=== PATIENT | male | born 1975 ===

== ENCOUNTER 2018-09-24 10:05 | Emergency (ER) | payer OTHER ==
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
[2018-09-24 10:09] VITALS: BP 124/87
[2018-09-24] MEDS ORDERED: DIPHTH/TETANUS/ACEL. PERTUSSIS IM ONLY ONE (10:25)
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
== END 2018-09-24 11:24 | disposition home or self-care (01) ==
LOC: ER 10:14
DX: S60.512A Abrasion of left hand, initial encounter (principal); S60.511A Abrasion of right hand, initial encounter; S80.211A Abrasion, right knee, initial encounter
CPT/HCPCS: 90471; 90715; 99283